=== PATIENT | female | born 1950 | race Caucasian/White ===

== ENCOUNTER 2018-05-14 16:30 | Emergency (ER) | payer MEDICARE, SELFPAY ==
[2018-05-14 16:31] VITALS: BP 129/66; PULSE 90; RESP 22; TEMP 36.7; O2SAT 93; BMI 46.0
--- NOTE | 2018-05-14 16:55 | RAD_ITS ---
STUDY: X-RAY CHEST REASON FOR EXAM: Female, 67 years old. Shortness of breath TECHNIQUE: Single AP portable view of the chest. COMPARISON: None. FINDINGS: The lungs are clear and expanded. There is no demonstrated pleural abnormality. There is borderline cardiomegaly. Normal mediastinum and pinky. Normal visualized pulmonary arteries. Normal visualized aortic arch and descending thoracic aorta. Normal visualized thoracic spine. Normal visualized ribs, clavicles, and shoulders. There is no demonstrated abnormality of the visualized soft tissue structures of the upper abdomen. RAD/Chest 1 View (Portable) IMPRESSION: No acute cardiopulmonary disease Electronically Signed: Pavel Koch DO at 17:09 EDT Tel , Service support ,
--- NOTE | 2018-05-14 17:00 | ED.DCSUM_ITS ---
- ER Visit Summary Date of Service: 05/14/18 Chief Complaint: Dyspnea History of Present Illness: The patient is a 67 F who complains of dyspnea. She actually does not feel any worse than she has in the past, however she was trying to get a humidifier for her oxygen tank and she was noticed to have more difficulty breathing. She arrives via squad however she feels at baseline. She denies any fever chills. She has a cough that is her normal cough and has not increased in consistency or frequency. She has no chest pain or back pain. She does have left breast cellulitis and is being treated by PCP with antibiotics. This got started yesterday. Physical Examination: [] Is an otherwise unremarkable exam, she has bilateral wheezing which is mild, she is speaking in full sentences and no respiratory distress. She has cellulitis over the left breast area without any signs of abscess. There is no subcu air. There are lines drawn to demarcate the cellulitis which were drawn yesterday the cellulitis does not extend outside those lines. Emergency Department Course and Treatment: She appears well, she was given a nebulizer. She improved. X-ray was performed negative.. There are no new symptoms today and I believe the patient can be discharged in stable condition. She has no change in her sputum production. She in fact has no change in her baseline and does not feel any shortness of breath. She no longer has wheezing I do not believe she suffice for steroid, she certainly does not need antibiotics. Disposition: Discharge stable condition Impression: COPD This note was generated with [employer] dictation software. It may contain incorrect words, spelling, and punctuation that were not noted in review of the chart prior to signing ED Disposition - Plan for ED Patient: Disposition: Home or Assisted Living Instructions: ED COPD Flare Additional Instructions: Appears your doctors she can get a humidifier for a oxygen. Otherwise if you have fever chills or worsening shortness of breath return to the emergency department.
[2018-05-14 17:05] VITALS: PULSE 94; RESP 18
--- NOTE | 2018-05-14 17:05 | CM.ED ---
SOCIAL WORK NOTE CALL FROM DR. MCKEON INQUIRING ABOUT HUMIDIFIER CONNECTOR FOR PT'S O2. MET WITH PT AT BEDSIDE. PER PT, HAS O2 TANK FROM A FRIEND WHO . PT STATES WAS PRESCRIBED O2 PRIOR AND WAS D/C'ED 1 YEAR AGO. PT STATES HAD A COLD AND WAS CLEANING THE O2 TUBING AND ACCIDENTALLY THREW AWAY THE HUMIDIFIER CONNECTOR. PT STATES HAS APPOINTMENT NEXT WEEK AND IS HOPING WILL BE PRESCRIBED O2 AGAIN. CALL TO RESPIRATORY THERAPY TO DISCUSS PT'S NEEDS. R.T. TO FOLLOW UP WITH PT. NURSING AND DR. MCKEON UPDATED. JAD SEGURA, FEATHER BALER, COUNTER INTELLIGENCE AGENT.
[2018-05-14] MEDS: Ipratropium/Albuterol Sulfate 3 ML AMPUL.NEB INHALATION (17:09)
[2018-05-14 17:43] VITALS: PULSE 90; RESP 18
== END 2018-05-14 17:48 | disposition home or self-care (01) ==
PROVIDERS: Emergency Provider Emergency Medicine; Family Provider Family Medicine; PCP Family Medicine
DX: J44.9 Chronic obstructive pulmonary disease, unspecified (principal); N61.0 Mastitis without abscess; Z72.0 Tobacco use
CPT/HCPCS: 71045; 94640; 99284